=== PATIENT | male | born 1960 | race Caucasian/White ===

== ENCOUNTER 2016-12-05 13:15 | Emergency (ER) | payer MEDICAID ==
[~2016-12-05] VITALS: Ht 185.4 cm; Wt 85.7 kg
[2016-12-05 13:27] VITALS: BP 140/88
== END 2016-12-05 15:45 | disposition home or self-care (01) ==
LOC: ED 13:15
DX: S16.1XXA Strain of muscle, fascia and tendon at neck level, initial encounter (principal); M54.12 Radiculopathy, cervical region; S46.811A Strain of other muscles, fascia and tendons at shoulder and upper arm level, right arm, initial encounter; X58.XXXA Exposure to other specified factors, initial encounter; Y93.89 Activity, other specified; Y99.8 Other external cause status; Y92.89 Other specified places as the place of occurrence of the external cause
CPT/HCPCS: J1100; J1885

== ENCOUNTER 2016-12-09 10:25 | Emergency (ER) | payer MEDICAID ==
[2016-12-09 13:11] VITALS: BP 159/96
== END 2016-12-09 13:11 | disposition home or self-care (01) ==
LOC: ED 10:25
DX: Z02.79 Encounter for issue of other medical certificate (principal); I10 Essential (primary) hypertension
CPT/HCPCS: J3490